=== PATIENT | female | born 1965 | race Two or more races ===

== ENCOUNTER → 2019-03-17 | Outpatient (CLI) | payer OTHER ==
--- NOTE | 2019-03-17 12:35 | RAD ---
MRI Lumbar Spine without contrast History: Low back pain, left leg radiculopathy Technique: Multiplanar, multi sequential noncontrast MR imaging was performed of the lumbar spine. Comparison: None Findings: Lumbar vertebral body stature is maintained. There is grade 1 anterior spondylolisthesis L4-5. There is mild degenerative disc disease at L4-5, mild disc desiccation L3-4 and L2-3. Mild edema of the bilateral L4 and L5 pedicles extending to the facet articular processes is more likely to be reactive/degenerative in etiology. There are annular tears anteriorly at L2-3 and L3-4 and posteriorly at L5-S1 and L4-5. Conus terminates near L1-2. There are likely follicles of the visualized left ovary. L1-L2: Spinal canal and neural foramina are adequate. L2-L3: Neural foramina and spinal canal are adequate. L3-L4: Spinal canal and neural foramina are adequate. L4-L5: There is mild buckling of the ligamentum flavum and facet hypertrophic change. There is minimal fluid in the facet articulations bilaterally. There is partial uncovering of the posterior aspect of the disc due to spondylolisthesis. There is minimal posterior narrowing of the distal left neural foramen by facet and ligamentum flavum, right neural foramen overall adequate. There is mild narrowing of the far lateral recesses bilaterally greater on the right primarily from posteriorly, also mild narrowing of the central canal. L5-S1: Spinal canal and neural foramina are adequate. Impression: 1. There is grade 1 anterior spondylolisthesis L4-5 at which there is facet degenerative change. There is overall mild spinal stenosis at L4-5 including narrowing of the lateral recesses. There is mild L4-5 degenerative disc disease. There is edema of L4 and L5 pedicles bilaterally extending to the facet articular processes more likely be reactive/degenerative in etiology. There is minimal posterior narrowing of the left L4-5 neural foramen distally. Electronically signed by: Wayne Carmichael MD (03/17/2019 12:32 PM) [id number]
== END | disposition home or self-care (01) ==
LOC: MRI 11:29
PROVIDERS: ATTEND Family Medicine
DX: M43.16 Spondylolisthesis, lumbar region (principal); M48.061 Spinal stenosis, lumbar region without neurogenic claudication; M51.36 Other intervertebral disc degeneration, lumbar region; M47.816 Spondylosis without myelopathy or radiculopathy, lumbar region
CPT/HCPCS: 72148